=== PATIENT | female | born 1960 | race Caucasian/White ===

== ENCOUNTER 2018-06-27 19:25 | Emergency (ER) | payer BC ==
[2018-06-27 19:33] VITALS: BP 142/88
--- NOTE | 2018-06-27 19:57 | EDPHY ---
H & P Time Seen by Provider: 06/27/18 19:37 HPI/ROS: CHIEF COMPLAINT: I feel out of my mind HISTORY OF PRESENT ILLNESS: Patient is visiting from [facility], is on Abilify for postmenopausal depression and on temazepam for insomnia. She doubled up on her temazepam last night and the night before and then today feels like she is going to pass out, feels like she is going "out of my mind" and feels much more shaky than usual. She wonders if it is a medication reaction. She feels more restless and normal. A little bit of twitching below her right eye for 2 weeks. She is tremulous in both arms. She denies suicidal or homicidal ideation or hallucinations. No headache or double vision or chest pain or shortness of breath or vomiting or diarrhea. No head injury or trauma. No fever or chills or ENT symptoms. Denies alcohol or any other medications. REVIEW OF SYSTEMS: Eye: no change in vision ENT: no sore throat Cardiac: no chest pain or syncope Pulmonary: no cough or SOB Abdomen: no vomiting, diarrhea, abdominal pain Musculoskeletal: Negative for leg swelling or recent injury Skin: no rash Neuro: no headache Constitutional: no fever : no urinary symptoms A comprehensive 10 point review of systems is otherwise negative aside from elements mentioned in the history of present illness. PAST MEDICAL HISTORY: Includes post menopausal depression as above, hypothyroid Social history: Visiting from [place] denies drugs General Appearance: Alert and conversant, cooperative. Eyes: No scleral icterus. Pupils equal reactive extraocular motion intact. ENT, Mouth: Normal mucous membranes. Respiratory: Normal respiratory effort, breath sounds equal, lungs are clear to auscultation. Cardiovascular: Regular rate and rhythm. Gastrointestinal: Abdomen is soft and non tender. Neurological: Alert, face symmetric, normal motor and sensory in extremities. [id number] normal, no pronator drift, speech is fluent, not ataxic. Does have a mild resting tremor. Skin: Warm and dry, no rashes. Musculoskeletal: No peripheral edema. Psychiatric: Not agitated. Appears anxious. Emergency Department course/MDM: Patient says she had a history of having some kidney problems in the past, will plan for i-STAT Chem 8 and EKG. Do not think she meets criteria for mental health hold. Do not think it is likely she has stroke or seizure, alcohol or benzodiazepine withdrawal, or acute psychiatric exacerbation. 2039: The patient has been on Abilify for 5 weeks. The possibility of tardive dyskinesia is considered, especially since she has also had right eye twitching for the last 2 weeks. She is warned to stop the Abilify immediately. Her depression prior to starting it was not severe enough for her to have suicidal ideation or plan at the time of her diagnosis or starting the medication. She is returning tomorrow so her primary care doctor in [place], will call and follow-up this week. Will spend tonight with her friend. I think it is safe for her to be discharged. She is warned about the possibility of tardive dyskinesia. Smoking Status: Never smoked Constitutional: Initial Vital Signs Temperature (C) 36.6 C 06/27/18 19:28 Heart Rate 81 06/27/18 19:28 Respiratory Rate 16 06/27/18 19:28 Blood Pressure 142/88 H 06/27/18 19:28 O2 Sat (%) 99 06/27/18 19:28 O2 Delivery Mode Room Air Allergies/Adverse Reactions: Penicillins Allergy (Verified 06/27/18 19:33) Home Medications: Medication Instructions Recorded Abilify 06/27/18 Estradiol 06/27/18 Levothyroxine 06/27/18 Paxil 06/27/18 Progesterone 06/27/18 Temazepam 06/27/18 Medical Decision Making - Diagnostics EKG Interpretation: 12-lead EKG interpreted by me; official reading is in computer system. My interpretation is sinus rhythm rate 64 with PVC. - Data Points Laboratory Results: 06/27/18 20:24 POC Hgb 15.3 gm/dL gm/dL (12.6-16.3) POC Hct 45 % % (38-47) POC Sodium 142 mEq/L mEq/L (135-145) POC Potassium 3.9 mEq/L mEq/L (3.3-5.0) POC Chloride 105 mEq/L mEq/L (97-110) POC Total CO2 25 mEq/L mEq/L (22-31) POC BUN 19 mg/dL mg/dL (7-23) POC Creatinine 1.1 mg/dL H mg/dL (0.6-1.0) POC Glucose 114 mg/dL H mg/dL (70-100) Point of Care Test Results: Chemistry 06/27/18 20:24 POC Sodium 142 mEq/L mEq/L (135-145) POC Potassium 3.9 mEq/L mEq/L (3.3-5.0) POC Chloride 105 mEq/L mEq/L (97-110) POC Total CO2 25 mEq/L mEq/L (22-31) POC BUN 19 mg/dL mg/dL (7-23) POC Creatinine 1.1 mg/dL H mg/dL (0.6-1.0) POC Glucose 114 mg/dL H mg/dL (70-100) ISTAT H&H 06/27/18 20:24 POC Hgb 15.3 gm/dL gm/dL (12.6-16.3) POC Hct 45 % % (38-47) Departure - Departure Disposition: Home, Routine, Self-Care Clinical Impression: Possible medication side effect Condition: Good Instructions: Aripiprazole (By mouth) Additional Instructions: Stop taking Abilify. It is possible that your symptoms could be due to to tardive dyskinesia; please follow-up with your doctor this week at home. There is no definite diagnosis established in the emergency department. I think it is safe for you to take the Temazepam as prescribed. Referrals: Gini Ritchie MD [Medical Doctor] - As per Instructions NONE *PRIMARY CARE P,. [Primary Care Provider] - As per Instructions (Please follow-up this week with your prescribing physician in [facility].)
--- NOTE | 2018-06-27 20:17 | CPEKG ---
Test Reason : OPEN Blood Pressure : / mmHG Vent. Rate : 064 BPM Atrial Rate : 063 BPM P-R Int : 142 ms QRS Dur : 103 ms QT Int : 453 ms P-R-T Axes : 008 006 031 degrees QTc Int : 468 ms Sinus rhythm Ventricular premature complex Confirmed by Linden Tomlin ([id number]) on 06/27/2018 8:16:54 PM Referred By: LINDEN TOMLIN Confirmed By:Linden Tomlin
== END 2018-06-27 21:01 | disposition home or self-care (01) ==
DX: R45.89 Other symptoms and signs involving emotional state (principal)
CPT/HCPCS: 82435-PO; 82565-PO; 82947-PO; 84132-PO; 84295-PO; 84520-PO; 85014-ER